=== PATIENT | female | born 1950 | race Caucasian/White ===

== ENCOUNTER 2017-01-10 15:54 | Inpatient (IN) | payer OTHER ==
[~2017-01-10] VITALS: Ht 170.2 cm; Wt 86.3 kg
[2017-01-10 16:45] LABS: TROP-I INTERPRETATION NEGATIVE; TROPONIN-I < 0.01 ng/mL (0.0-0.30)
[2017-01-10 17:04] LABS: EOSINOPHIL (%) 3.8 % (0-5); EOSINOPHIL COUNT 0.3 K/uL (0-0.3); HEMATOCRIT 44.5 % (36.0-46.0); IMMATURE GRANULOCYTE (%) 0.4 % (0.0-0.7); INSTRUMENT ABS NEUTROPHIL CT 3.7 K/uL; LYMPHOCYTE COUNT 2.4 K/uL (1.0-2.8); MCH 29.8 PG (29.0-34.0); MCHC 32.8 G/DL (30.0-36.0); MCV 90.8 FL (83-99); MEAN PLAT.VOLUME 10.1 uM^3 (9.5-12.4); MONOCYTE (%) 13.8 % (3-12); NEUTROPHIL (%) 49.8 % (45-76); NEUTROPHIL COUNT 3.7 K/uL (1.8-6.4); PLATELET COUNT 261 K/uL (156-360); RBC DIS.WIDTH-CV 13.2 % (11.8-14.6); RBC DIS.WIDTH-SD 44.2 % (39-53); WHITE BLOOD COUNT 7.4 K/uL (4.1-10.2)
[2017-01-10 17:10] LABS: AMYLASE 39 IU/L (1-118); CHLORIDE 107 mEq/L (99-109)
[2017-01-10 17:11] LABS: SODIUM 140 mEq/L (136-147)
[2017-01-10 17:12] LABS: GLUCOSE 125 mg/dL (70-99)
[2017-01-10 17:14] LABS: ANION GAP 14 MEQ/L (2-14)
[2017-01-10 17:15] LABS: SERUM ETHYL ALCOHOL < 10 mg/dL
[2017-01-10 17:17] LABS: UREA NITROGEN (BUN) 26 mg/dL (9-23)
[2017-01-10 17:19] LABS: LIPASE 22 U/L (1.0-51.0)
[2017-01-10 17:23] LABS: GFR ESTIMATE (CALCULATED) 59 mL/min/
[2017-01-10] MEDS ORDERED: LOVAZA1 GM PO (20:51)
[2017-01-10] MEDS ORDERED: NORVASC10 MG PO (20:51)
[2017-01-10] MEDS ORDERED: LOTENSIN40 MG PO (20:52)
[2017-01-10] MEDS ORDERED: VERAPAMIL HCL180 MG PO (20:52)
[2017-01-10] MEDS ORDERED: TYLENOL REGULA325 MG PO (20:52)
[2017-01-10] MEDS ORDERED: KENALOG,ARISTOC15 G2 TP (20:53)
[2017-01-10] MEDS ORDERED: DAILY VITE1 EAC1 PO (20:53)
[2017-01-10] MEDS ORDERED: VITAMIN D31000 UNI2 PO (20:54)
[2017-01-10] MEDS ORDERED: ASCORBIC ACID100 MG PO (20:54)
[2017-01-10 22:32] LABS: TROP-I INTERPRETATION NEGATIVE; TROPONIN-I < 0.01 ng/mL (0.0-0.30)
[2017-01-10 23:32] VITALS: BP 128/62
[2017-01-11 00:13] LABS: ADD MIUA? YES; BILIRUBIN NEGATIVE; BLOOD NEGATIVE; COLOR YELLOW ((YELLOW)); GLUCOSE (STRIP) 50; KETONES NEGATIVE; LEUKOCYTES SMALL; NITRITE POSITIVE; PROTEIN (STRIP) NEGATIVE; SPECIFIC GRAVITY 1.038 (1.000-1.030); UROBILINOGEN 0.2 MG/DL (0.2-1.0)
[2017-01-11 00:49] LABS: COCAINE NEGATIVE (150 ng/mL); METHAMPHETAMINE NEGATIVE (500 ng/mL); OPIATES (MORPHINE) PRESUMPTIVE POSITIVE (100 ng/mL); PHENCYCLIDINE NEGATIVE (25 ng/mL); THC CANNABINOIDS NEGATIVE (50 ng/mL)
[2017-01-11 00:50] LABS: ADD MEDTOX COMMENT Y; AMPHETAMINE NEGATIVE (500 ng/mL); BARBITURATES NEGATIVE (200 ng/mL); BENZODIAZEPINES PRESUMPTIVE POSITIVE (150 ng/mL); INTERNAL CONTROLS VALID? YES; METHADONE NEGATIVE (200 ng/mL); OXYCODONE NEGATIVE (100 ng/mL); PROPOXYPHENE NEGATIVE (300 ng/mL); TRICYCLIC ANTIDEPRESSANTS NEGATIVE (300 ng/mL)
[2017-01-11 01:02] LABS: BACTERIA 2+ /HPF; EPITHELIAL CELLS RARE /HPF; MUCUS TRACE /LPF; RED BLOOD CELLS 30-40 /HPF (0-5); UCUL ADDED? YES
[2017-01-11 03:11] LABS: BENZODIAZEPINES QUANT VALUE 0 NG/ML
[2017-01-11 03:15] LABS: BENZODIAZEPINES, URINE SCREEN Negative (200 ng/mL)
[2017-01-11 03:16] VITALS: BP 132/63
[2017-01-11 04:00] VITALS: BP 148/70
[2017-01-11 04:08] LABS: HEMATOCRIT 35.7 % (36.0-46.0); MCHC 32.8 G/DL (30.0-36.0); MCV 91.5 FL (83-99); MEAN PLAT.VOLUME 9.8 uM^3 (9.5-12.4); PLATELET COUNT 224 K/uL (156-360); RBC DIS.WIDTH-CV 13.3 % (11.8-14.6); RBC DIS.WIDTH-SD 44.8 % (39-53)
[2017-01-11 04:25] LABS: CHLORIDE 108 mEq/L (99-109); SODIUM 138 mEq/L (136-147)
[2017-01-11 04:27] LABS: GLUCOSE 108 mg/dL (70-99)
[2017-01-11 04:29] LABS: ANION GAP 10 MEQ/L (2-14); TOTAL BILIRUBIN 0.4 mg/dL (0.0-1.0)
[2017-01-11 04:31] LABS: ALKALINE PHOSPHATASE 42 IU/L (3-129); GFR ESTIMATE (CALCULATED) > 59 mL/min/
[2017-01-11 04:32] LABS: UREA NITROGEN (BUN) 19 mg/dL (9-23)
[2017-01-11 04:38] LABS: TROP-I INTERPRETATION NEGATIVE; TROPONIN-I < 0.01 ng/mL (0.0-0.30)
[2017-01-11 05:21] LABS: WHITE BLOOD COUNT 10.3 K/uL (4.1-10.2)
[2017-01-11 09:00] VITALS: BP 144/73
[2017-01-11 10:32] LABS: TROP-I INTERPRETATION NEGATIVE; TROPONIN-I < 0.01 ng/mL (0.0-0.30)
[2017-01-11 19:49] VITALS: BP 151/67
[2017-01-11 23:15] VITALS: BP 143/70
[2017-01-12 03:12] VITALS: BP 151/70
[2017-01-12 05:38] LABS: EOSINOPHIL (%) 3.5 % (0-5); EOSINOPHIL COUNT 0.3 K/uL (0-0.3); HEMATOCRIT 33.8 % (36.0-46.0); IMMATURE GRANULOCYTE (%) 0.2 % (0.0-0.7); INSTRUMENT ABS NEUTROPHIL CT 5.3 K/uL; LYMPHOCYTE COUNT 1.6 K/uL (1.0-2.8); MCH 29.5 PG (29.0-34.0); MCHC 32.2 G/DL (30.0-36.0); MCV 91.4 FL (83-99); MONOCYTE COUNT 0.9 K/uL (0-0.8); NEUTROPHIL (%) 65.1 % (45-76); NEUTROPHIL COUNT 5.3 K/uL (1.8-6.4); PLATELET COUNT 190 K/uL (156-360); RBC DIS.WIDTH-CV 13.2 % (11.8-14.6); RBC DIS.WIDTH-SD 44.7 % (39-53); WHITE BLOOD COUNT 8.2 K/uL (4.1-10.2)
[2017-01-12 06:01] LABS: ANION GAP 8 MEQ/L (2-14); CHLORIDE 107 MEQ/L (99-109); GFR ESTIMATE (CALCULATED) > 59 mL/min/; GLUCOSE 111 mg/dL (70-99); MAGNESIUM 1.8 mg/dl (1.3-2.7); POTASSIUM 3.6 MEQ/L (3.7-5.4); SAMPLE HEMOLYSIS CHECK 0; SAMPLE ICTERIC CHECK 0; SAMPLE LIPEMIA CHECK 0; SODIUM 140 MEQ/L (136-147); UREA NITROGEN (BUN) 14 mg/dL (9-23)
[2017-01-12 09:00] VITALS: BP 158/81
[2017-01-12 16:49] VITALS: BP 142/68
[2017-01-12 19:36] VITALS: BP 124/65
[2017-01-12 23:40] VITALS: BP 135/67
[2017-01-13 03:39] VITALS: BP 140/63
[2017-01-13 07:09] VITALS: BP 139/76
[2017-01-13 11:12] VITALS: BP 125/65
[2017-01-13 15:52] VITALS: BP 149/66
[2017-01-13 19:33] VITALS: BP 139/61
[2017-01-13 23:57] VITALS: BP 122/56
[2017-01-14 03:46] VITALS: BP 120/60
[2017-01-14 07:58] VITALS: BP 153/74
[2017-01-14 10:25] LABS: HEMATOCRIT 36.2 % (36.0-46.0); MCH 29.7 PG (29.0-34.0); MCHC 32.9 G/DL (30.0-36.0); MCV 90.3 FL (83-99); MEAN PLAT.VOLUME 9.7 uM^3 (9.5-12.4); PLATELET COUNT 231 K/uL (156-360); RBC DIS.WIDTH-SD 43.1 % (39-53); RED BLOOD COUNT 4.01 M/uL (3.80-5.20); WHITE BLOOD COUNT 7.3 K/uL (4.1-10.2)
[2017-01-14 10:52] LABS: ALKALINE PHOSPHATASE 54 IU/L (3-129); ANION GAP 10 MEQ/L (2-14); CHLORIDE 107 MEQ/L (99-109); GFR ESTIMATE (CALCULATED) > 59 mL/min/; GLUCOSE 130 mg/dL (70-99); POTASSIUM 3.7 MEQ/L (3.7-5.4); SAMPLE HEMOLYSIS CHECK 0; SAMPLE ICTERIC CHECK 0; SAMPLE LIPEMIA CHECK 0; SODIUM 141 MEQ/L (136-147); TOTAL BILIRUBIN 0.3 MG/DL (0.0-1.0); UREA NITROGEN (BUN) 21 mg/dL (9-23)
[2017-01-14 12:03] VITALS: BP 132/65
[2017-01-14] MEDS ORDERED: PRAVASTATIN SOD40 MG PO (12:11)
[2017-01-14] MEDS ORDERED: BYSTOLIC10 MG PO (12:11)
[2017-01-14] MEDS ORDERED: CEFTIN500 MG PO (12:12)
[2017-01-14] MEDS ORDERED: ENDOCET 5-3251 EACH PO (12:12)
[2017-01-14] MEDS ORDERED: VERAPAMIL HCL180 MG PO (14:03)
[2017-01-14] MEDS ORDERED: LIPITOR10 MG PO (14:08)
== END 2017-01-14 14:31 | disposition home or self-care (01) | DRG 38 ==
LOC: TRA 15:54 → EDOF 21:27 → 3EAST 22:51
PROVIDERS: Emergency Medicine; Hospitalist; Internal Medicine
DX: S06.341A Traumatic hemorrhage of right cerebrum with loss of consciousness of 30 minutes or less, initial encounter (principal); N17.9 Acute kidney failure, unspecified; N39.0 Urinary tract infection, site not specified; R40.2412 Glasgow coma scale score 13-15, at arrival to emergency department; W10.8XXA Fall (on) (from) other stairs and steps, initial encounter; Z91.81 History of falling; Y92.219 Unspecified school as the place of occurrence of the external cause; S01.01XA Laceration without foreign body of scalp, initial encounter; K21.9 Gastro-esophageal reflux disease without esophagitis; S00.11XA Contusion of right eyelid and periocular area, initial encounter; S01.81XA Laceration without foreign body of other part of head, initial encounter; L30.9 Dermatitis, unspecified; I11.9 Hypertensive heart disease without heart failure; E78.5 Hyperlipidemia, unspecified; E66.9 Obesity, unspecified; R41.2 Retrograde amnesia; S06.2X1A Diffuse traumatic brain injury with loss of consciousness of 30 minutes or less, initial encounter; I49.3 Ventricular premature depolarization; R73.9 Hyperglycemia, unspecified; Y93.01 Activity, walking, marching and hiking; I49.1 Atrial premature depolarization; B96.20 Unspecified Escherichia coli [E. coli] as the cause of diseases classified elsewhere; Z68.29 Body mass index [BMI] 29.0-29.9, adult
CPT/HCPCS: 70450; 71010; 71260; 72125; 73110; 74177; 80048; 80053; 81003; 82150; 83690; 83735; 84484; 84999; 85025; 85027; 86900; 86901; 87077; 87086; 87186; 93005; 97530 GP; 99281; 99285; G0378; G0480; J0696; J2270; J7030; J7050

== ENCOUNTER → 2017-01-23 | Outpatient (CLI) | payer OTHER ==
[~2017-01-23] MED LIST: ASCORBIC ACID100 MG PO; BYSTOLIC10 MG PO; CEFTIN500 MG PO; DAILY VITE1 EAC1 PO; ENDOCET 5-3251 EACH PO; KENALOG,ARISTOC15 G2 TP; LIPITOR10 MG PO; LOTENSIN40 MG PO; LOVAZA1 GM PO; NORVASC10 MG PO; PRAVASTATIN SOD40 MG PO; TYLENOL REGULA325 MG PO; VERAPAMIL HCL180 MG PO; VITAMIN D31000 UNI2 PO
== END | disposition home or self-care (01) ==
LOC: AMB 12:30
DX: S06.0X9D Concussion with loss of consciousness of unspecified duration, subsequent encounter (principal); S01.111D Laceration without foreign body of right eyelid and periocular area, subsequent encounter; S00.11XD Contusion of right eyelid and periocular area, subsequent encounter; M25.531 Pain in right wrist; W10.9XXD Fall (on) (from) unspecified stairs and steps, subsequent encounter
CPT/HCPCS: 73110; 99212